=== PATIENT | female | born 1995 | race Caucasian/White ===

== ENCOUNTER 2016-08-11 19:48 | Emergency (ER) | payer OTHER ==
[~2016-08-11] VITALS: Ht 157.5 cm; Wt 74.8 kg
[2016-08-11 19:54] VITALS: TEMP 36.8; Ht 157.5 cm; Wt 74.8 kg
[2016-08-11] MEDS ORDERED: IBUPROFEN 600 MG TAB PO STA (20:03)
[2016-08-11] MEDS ORDERED: MONT1TAB3 PO (20:20)
[2016-08-11] MEDS ORDERED: PRVHFAIN INH (20:20)
[2016-08-11] MEDS ORDERED: CETI10TA84 PO (20:20)
[2016-08-11] MEDS ORDERED: BCPILLS PO (20:20)
--- NOTE | 2016-08-11 20:33 | DIAGNOSTIC IMAGING REPORT ---
LEFT WRIST 5 VIEWS HISTORY: Left wrist pain. COMPARISON: None. FINDINGS: Cortical buckling along the radial side of the distal radius near the base of the radial styloid. This likely represents a nondisplaced fracture. The scaphoid appears intact. Mild soft tissue swelling. No dislocation. No radiopaque foreign bodies. IMPRESSION: Nondisplaced fracture at the base of the radial styloid. Electronically signed by: Dain Barry M.D. 08/11/2016 8:31 PM Dictated Date/Time: 08/11/2016 8:29 PM
[2016-08-11] MEDS ORDERED: OXYC-57 PO (20:45)
[2016-08-11] MEDS ORDERED: PERCOCET HOME PACK PO ONE (20:45)
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
[2016-08-11 21:13] VITALS: BP 130/78; PULSE 86; O2SAT 98
== END 2016-08-11 21:14 | disposition home or self-care (01) ==
LOC: C.EDB 19:50 → C.EDD 21:14
DX: S52.515A Nondisplaced fracture of left radial styloid process, initial encounter for closed fracture (principal); V28.0XXA Motorcycle driver injured in noncollision transport accident in nontraffic accident, initial encounter; Y92.488 Other paved roadways as the place of occurrence of the external cause; F17.210 Nicotine dependence, cigarettes, uncomplicated; Z79.3 Long term (current) use of hormonal contraceptives

== ENCOUNTER 2021-07-28 14:23 | Observation (INO) ==
[2021-07-28] MEDS ORDERED: SODIUM CHLORIDE 0.9% 1000ML 1,000 ML IV ONE (14:56)
--- NOTE | 2021-07-28 15:05 | Emergency Department Note ---
History of Present Illness General Chief complaint: Urinary Symptoms Stated complaint: BLOOD IN URINE Time Seen by Provider: 07/28/21 14:41 Source: patient and family ( who is at the bedside) Mode of arrival: ambulatory Limitations: no limitations History of Present Illness Maximum Pain Intensity: 7 This patient is a 25-year-old female who comes in with aminal pain and hematuria. She is status post laparoscopic ovarian cyst removal on 07/[address] Severino here. She was having right-sided abdominal pain prior and since then she says the pain has not gotten any better in fact is slightly worse she said it feels like there is pressure in her bladder however she feels like she has been emptying her bladder today she did urinate some blood. She did talk to her doctors this week if she is running fevers up to 101.1 last couple days and they have a urine culture pending but she is not on any antibiotic she has had a mild cough which is mostly chronic she states she developed a stitch in her right anterior chest last night. She has mild bilateral back pain she has some nausea but no emesis. She had a recent negative COVID test and has had no known COVID exposures. The surgery wounds have been healing well Home Medications Medication Instructions Recorded Confirmed Type albuterol sulfate 90 mcg/actuation 1 inh INHALATION QID PRN 07/18/21 07/28/21 History aerosol inhaler (Ventolin HFA) ibuprofen 200 mg capsule 600 mg PO Q6H PRN 07/18/21 07/28/21 History tramadol 50 mg tablet 50 mg PO Q6H PRN #12 tab 07/20/21 07/28/21 Rx cephalexin 500 mg tablet 500 mg PO BID 10 Days #20 tab 07/28/21 Rx Allergies Allergy/AdvReac Type Severity Reaction Status Date / Time doxycycline Allergy Intermediate hives Verified 07/28/21 15:21 nickel Allergy Intermediate ITCHY HIVES Verified 07/28/21 15:21 Past Med/Surg History Medical History Anxiety Asthma LAST INHALER USE 2-3 WEEKS AGO GERD (gastroesophageal reflux disease) Migraine HX Surgical History History of laparotomy FOR OVARIAN CYSTS History of tooth extraction WISDOM TEETH Nausea and vomiting after administration of anesthetic agent Family History Grandmother (Maternal) No problems noted. 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 Feels Safe at Home: Yes Childhood Exposure to Second-Hand Smoke: Yes caffeine: No Dental Care, Regularly: No Physical Activity Frequency: Does not Exercise Seatbelt Use: always Sunscreen Use: No Do you think of yourself as: straight/heterosexual Sexual Activity: has never been active Gender Identity: Female Assistive Devices: Contacts and Glasses Review of Systems A total of 10 systems reviewed and were otherwise negative Physical Exam Vital Signs Vital Signs - 24 hr 07/28/21 14:31 07/28/21 15:14 07/28/21 16:40 Temperature 36.3 C L Temperature Source Skin Pulse Rate 110 H Pulse Rate [Finger] 89 Pulse Rhythm Regular Pulse Strength Normal Respiratory Rate 20 20 Respiratory Effort / Characteristics Non-Labored Spontaneous Respiratory Depth Normal Respiratory Pattern Regular Blood Pressure 123/80 Blood Pressure [Left Arm] 106/61 Blood Pressure Mean 94 Blood Pressure Mean [Left Arm] 76 Pulse Oximetry 98 97 99 Oxygen Delivery Method Room Air Room Air Room Air Sepsis Recent Fever Within 48 Hours No Sepsis New/Unexplained Change in Mental Status N/A Sepsis Action Taken by Nursing No Action Required 07/28/21 17:29 07/28/21 19:03 Temperature Temperature Source Pulse Rate Pulse Rate [Finger] 91 H 85 Pulse Rhythm Pulse Strength Respiratory Rate 24 18 Respiratory Effort / Characteristics Respiratory Depth Respiratory Pattern Blood Pressure Blood Pressure [Left Arm] 106/61 107/68 Blood Pressure Mean Blood Pressure Mean [Left Arm] 76 81 Pulse Oximetry 100 99 Oxygen Delivery Method Room Air Room Air Sepsis Recent Fever Within 48 Hours Sepsis New/Unexplained Change in Mental Status Sepsis Action Taken by Nursing General: Well developed well nourished not ill-appearing young female who in no acute distress, breathing comfortably on room air. Normal speech HEENT: Normal cephalic atraumatic. Pupils are equal round and reactive to light. Extraocular movements are intact. Oropharynx is pink with moist mucous membranes. No swelling of the mouth lips or tongue. Neck: Supple with a midline trachea. No meningeal signs or stiffness, no JVD or bruits. No Stridor. Chest: Clear to auscultation bilaterally. No wheezes or rhonchi. No increased work of breathing. No tenderness of the ribs. No crepitus or subcutaneous air Heart: Regular rate and rhythm without murmurs or gallops. Abdomen: Soft to moderately diffusely tender. She has 4 incisions from her laparoscopic surgery which are healing well without any redness pus or drainage. There is a small hematoma/bruise below the umbilical incision. Nondistended without rebound guarding or rigidity. Extremities: No cyanosis clubbing or edema. No calf tenderness or assymetry Spine/Back. Non tender to palpation. No CVA tenderness Skin: Good turgor without rashes. Neurologic exam: Cranial nerves two through 12 are intact. Motor and sensation are intact and symmetrical throughout. Course Administered Medications Discontinued Medications Cephalexin HCl (Cephalexin 500mg Home Pack) 1 homepack PO NOW ONE Stop: 07/28/21 18:36 Last Admin: 07/28/21 21:05 Dose: Not Given Documented by: [id number] Sodium Chloride (Nss 1000ml) 1,000 mls @ 999 mls/hr IV .Q1H1M ONE Stop: 07/28/21 15:56 Last Infusion: 07/28/21 16:15 Dose: 0 mls/hr Documented by: [id number] Admin: 07/28/21 15:18 Dose: 999 mls/hr Documented by: [id number] Ioversol (Optiray 320 125ml) 119 ml IV ONCE ONE Stop: 07/28/21 17:19 Last Admin: 07/28/21 17:18 Dose: 119 ml Documented by: [id number] Medical Decision Making Differential Diagnosis UTI, postop complication, postop bleeding, PE, , ovarian cysts, endometriosis, electrolyte or metabolic Medical Records Attestation: I reviewed the patient's medical records. Home Medications Current Medication List: was personally reviewed by me Laboratory Data Attestation: I reviewed the patient's lab results. Result diagrams: 07/28/21 15:05 07/28/21 15:05 Lab Results 07/28/21 07/28/21 07/28/21 Range/Units 15:05 15:05 15:05 WBC 8.38 (4.8-10.8) K/uL RBC 3.51 L (4.2-5.4) M/uL Hgb 10.4 L (12.0-16.0) g/dL Hct 30.9 L (37-47) % MCV 88.0 (80-100) fL MCH 29.6 (25-34) pg MCHC 33.7 (32-36) g/dL RDW Std Deviation 40.6 (36.4-46.3) fL RDW Coeff of Santino 12.9 (11.5-14.5) % Plt Count 493 H (130-400) K/uL MPV 8.2 (7.4-10.4) fL Immature Gran % (Auto) 0.2 % Neut % (Auto) 66.9 % Lymph % (Auto) 19.5 % Eagle % (Auto) 7.3 % Eos % (Auto) 5.7 % Baso % (Auto) 0.4 % Neut # (Auto) 5.61 (1.4-6.5) K/uL Lymph # (Auto) 1.63 (1.2-3.4) K/uL Eagle # (Auto) 0.61 H (0.11-0.59) K/uL Eos # (Auto) 0.48 (0-0.5) K/uL Baso # (Auto) 0.03 (0-0.2) K/uL Immature Gran # (Auto) 0.02 (0.00-0.02) K/uL PT (9.0-12.0) Seconds INR (0.9-1.1) APTT (21.0-31.0) Seconds PTT Ratio D-Dimer 2810 H* (0-500) ug/L FEU Sodium 136 (136-145) mmol/L Potassium 4.0 (3.5-5.1) mmol/L Chloride 101 (98-107) mmol/L Carbon Dioxide 27 (21-32) mmol/L Anion Gap 8 (3-11) BUN 8 (6-23) mg/dl Creatinine 0.54 L (0.6-1.2) mg/dl Est Cr Clr Drug Dosing 149.2 ml/min Est GFR ( Amer) > 150.0 ml/min Est GFR (Non-Af Amer) 131.2 ml/min BUN/Creatinine Ratio 14.8 (10-20) Glucose 86 (70-99(Fasting)) mg/dl Lactate (0.4-2.0) mmol/L Calcium 9.8 (8.5-10.1) mg/dl Magnesium 2.1 (1.7-2.4) mg/dl Total Bilirubin 1.1 H (0.2-1.0) mg/dl AST 23 (13-39) U/L ALT 14 (7-52) U/L Alkaline Phosphatase 71 (34-104) U/L Total Protein 7.8 (6.0-8.3) gm/dl Albumin 4.2 (3.4-5.0) gm/dl Globulin 3.6 (2.5-4.0) gm/dl Albumin/Globulin Ratio 1.2 (0.9-2) Procalcitonin (0-0.5) ng/ml HCG, Qual (Negative) Urine Color Urine Appearance (Clear) Urine pH (4.5-7.5) Ur Specific [place] (1.000-1.030) Urine Protein (Negative) Urine Glucose (UA) (Negative) Urine Ketones (Negative) Urine Blood (Negative) Urine Nitrite (Negative) Urine Bilirubin (Negative) Urine Urobilinogen (Negative) Ur Leukocyte Esterase (Negative) Urine WBC (Auto) (0-5) /hpf Urine RBC (Auto) (0-4) /hpf U Hyaline Cast (Auto) (0-5) /lpf U Epithel Cells (Auto) (0-5) /lpf Urine Bacteria (Auto) (Negative) Urine Mucus (None Prsent) SARS-CoV-2, RNA, NAAT (NEGATIVE) 07/28/21 07/28/21 07/28/21 Range/Units 15:05 15:05 15:05 WBC (4.8-10.8) K/uL RBC (4.2-5.4) M/uL Hgb (12.0-16.0) g/dL Hct (37-47) % MCV (80-100) fL MCH (25-34) pg MCHC (32-36) g/dL RDW Std Deviation (36.4-46.3) fL RDW Coeff of Santino (11.5-14.5) % Plt Count (130-400) K/uL MPV (7.4-10.4) fL Immature Gran % (Auto) % Neut % (Auto) % Lymph % (Auto) % Eagle % (Auto) % Eos % (Auto) % Baso % (Auto) % Neut # (Auto) (1.4-6.5) K/uL Lymph # (Auto) (1.2-3.4) K/uL Eagle # (Auto) (0.11-0.59) K/uL Eos # (Auto) (0-0.5) K/uL Baso # (Auto) (0-0.2) K/uL Immature Gran # (Auto) (0.00-0.02) K/uL PT (9.0-12.0) Seconds INR (0.9-1.1) APTT (21.0-31.0) Seconds PTT Ratio D-Dimer (0-500) ug/L FEU Sodium (136-145) mmol/L Potassium (3.5-5.1) mmol/L Chloride (98-107) mmol/L Carbon Dioxide (21-32) mmol/L Anion Gap (3-11) BUN (6-23) mg/dl Creatinine (0.6-1.2) mg/dl Est Cr Clr Drug Dosing ml/min Est GFR ( Amer) ml/min Est GFR (Non-Af Amer) ml/min BUN/Creatinine Ratio (10-20) Glucose (70-99(Fasting)) mg/dl Lactate 0.8 (0.4-2.0) mmol/L Calcium (8.5-10.1) mg/dl Magnesium (1.7-2.4) mg/dl Total Bilirubin (0.2-1.0) mg/dl AST (13-39) U/L ALT (7-52) U/L Alkaline Phosphatase (34-104) U/L Total Protein (6.0-8.3) gm/dl Albumin (3.4-5.0) gm/dl Globulin (2.5-4.0) gm/dl Albumin/Globulin Ratio (0.9-2) Procalcitonin < 0.05 (0-0.5) ng/ml HCG, Qual Negative (Negative) Urine Color Urine Appearance (Clear) Urine pH (4.5-7.5) Ur Specific [place] (1.000-1.030) Urine Protein (Negative) Urine Glucose (UA) (Negative) Urine Ketones (Negative) Urine Blood (Negative) Urine Nitrite (Negative) Urine Bilirubin (Negative) Urine Urobilinogen (Negative) Ur Leukocyte Esterase (Negative) Urine WBC (Auto) (0-5) /hpf Urine RBC (Auto) (0-4) /hpf U Hyaline Cast (Auto) (0-5) /lpf U Epithel Cells (Auto) (0-5) /lpf Urine Bacteria (Auto) (Negative) Urine Mucus (None Prsent) SARS-CoV-2, RNA, NAAT (NEGATIVE) 07/28/21 07/28/21 07/28/21 Range/Units 15:05 15:05 15:10 WBC (4.8-10.8) K/uL RBC (4.2-5.4) M/uL Hgb (12.0-16.0) g/dL Hct (37-47) % MCV (80-100) fL MCH (25-34) pg MCHC (32-36) g/dL RDW Std Deviation (36.4-46.3) fL RDW Coeff of Santino (11.5-14.5) % Plt Count (130-400) K/uL MPV (7.4-10.4) fL Immature Gran % (Auto) % Neut % (Auto) % Lymph % (Auto) % Eagle % (Auto) % Eos % (Auto) % Baso % (Auto) % Neut # (Auto) (1.4-6.5) K/uL Lymph # (Auto) (1.2-3.4) K/uL Eagle # (Auto) (0.11-0.59) K/uL Eos # (Auto) (0-0.5) K/uL Baso # (Auto) (0-0.2) K/uL Immature Gran # (Auto) (0.00-0.02) K/uL PT 10.5 (9.0-12.0) Seconds INR 1.0 (0.9-1.1) APTT 29.2 (21.0-31.0) Seconds PTT Ratio 1.1 D-Dimer (0-500) ug/L FEU Sodium (136-145) mmol/L Potassium (3.5-5.1) mmol/L Chloride (98-107) mmol/L Carbon Dioxide (21-32) mmol/L Anion Gap (3-11) BUN (6-23) mg/dl Creatinine (0.6-1.2) mg/dl Est Cr Clr Drug Dosing ml/min Est GFR ( Amer) ml/min Est GFR (Non-Af Amer) ml/min BUN/Creatinine Ratio (10-20) Glucose (70-99(Fasting)) mg/dl Lactate (0.4-2.0) mmol/L Calcium (8.5-10.1) mg/dl Magnesium (1.7-2.4) mg/dl Total Bilirubin (0.2-1.0) mg/dl AST (13-39) U/L ALT (7-52) U/L Alkaline Phosphatase (34-104) U/L Total Protein (6.0-8.3) gm/dl Albumin (3.4-5.0) gm/dl Globulin (2.5-4.0) gm/dl Albumin/Globulin Ratio (0.9-2) Procalcitonin (0-0.5) ng/ml HCG, Qual (Negative) Urine Color Dark Yellow Urine Appearance Clear (Clear) Urine pH 6.5 (4.5-7.5) Ur Specific [place] 1.021 (1.000-1.030) Urine Protein Negative (Negative) Urine Glucose (UA) Negative (Negative) Urine Ketones Negative (Negative) Urine Blood Negative (Negative) Urine Nitrite Negative (Negative) Urine Bilirubin Negative (Negative) Urine Urobilinogen Negative (Negative) Ur Leukocyte Esterase 1+ H (Negative) Urine WBC (Auto) 1-5 (0-5) /hpf Urine RBC (Auto) 0-4 (0-4) /hpf U Hyaline Cast (Auto) 1-5 (0-5) /lpf U Epithel Cells (Auto) >30 H (0-5) /lpf Urine Bacteria (Auto) Negative (Negative) Urine Mucus Present A (None Prsent) SARS-CoV-2, RNA, NAAT NEGATIVE (NEGATIVE) Imaging Data Attestation: I personally reviewed and interpreted this imaging study as follows: My Impression: Chest x-rayno acute infiltrate, failure, pneumothorax seen. No free air Radiologist's Impression: Pelvis Ultrasound 07/28/21 00:00 US pelvic complete HISTORY: 25 years-old Female pain acute pelvic pain with hemoperitoneum and recent laparoscopic cyst removal COMPARISON: CT pelvis of same day TECHNIQUE: Multiple real-time sonographic images of the deep pelvic structures were obtained transabdominally and transvaginally assessing grayscale appearance, color and spectral flow FINDINGS: TRANSABDOMINAL: Anteflexed uterus measures 6.9 x 2.7 x 4.6 cm. Endometrium measures 7 mm. No myometrial mass lesion identified. Moderate amount of complex free pelvic fluid redemonstrated measuring up to 8.4 x 4.3 x 7.3 cm superior to the uterus. Ovaries are not well visualized. TRANSVAGINAL: Unremarkable sonographic appearance of the uterus and endometrium. Pneumoperitoneum redemonstrated. The right ovary measures 3.9 x 3.1 x 3.9 cm and demonstrates arterial inflow with venous outflow. Hemorrhagic right ovarian cyst, 2.7 x 3.1 x 1.9 cm. The left ovary is obscured by the pelvic blood products. IMPRESSION: 1. Moderate amount of hemoperitoneum within the pelvis redemonstrated obscuring the left ovary. 2. Unremarkable sonographic appearance of the uterus and endometrium. 3. 3.1 cm hemorrhagic right ovarian cyst. 4. No evidence of right ovarian torsion. ACT 112: Negative or not required by law. The above report was generated using voice recognition software. It may contain grammatical, syntax or spelling errors. Electronically signed by: Tristian De La Torre M.D. 07/28/2021 8:34 PM Chest X-Ray 07/28/21 14:56 XR chest 1V portable HISTORY: 25 years-old Female SEPSIS acute sepsis COMPARISON: 07/28/2017 TECHNIQUE: AP view of the chest FINDINGS: The cardiomediastinal and hilar silhouettes are within normal limits. No pneumothorax, pleural effusion, airspace consolidation or overt pulmonary edema. The bones of the chest appear grossly intact. IMPRESSION: No acute process. ACT 112: Negative or not required by law. The above report was generated using voice recognition software. It may contain grammatical, syntax or spelling errors. Electronically signed by: Tristian De La Torre M.D. 07/28/2021 3:47 PM Abdomen/Pelvis CT 07/28/21 16:29 CT angio chest PE protocol, CT abd pelvis IV con only CT DOSE: 750.96 mGy.cm HISTORY: 25 years-old Female with PE. Acute cough with shortness of breath and abdominal pain. Recent laparoscopic ovarian cyst removal. Acute hematuria. TECHNIQUE: Multiple CTA images of the chest were obtained after the intravenous administration of 119 ml Optiray. Coronal and sagittal MIPS were obtained from the axial data set and were submitted for review. All measurements were obtained according to NASCET criteria. A dose lowering technique was utilized adhering to the principles of ALARA. COMPARISON: Chest radiograph of same day FINDINGS: CTA: There is adequate opacification of the pulmonary arteries to the level of the subsegmental branches without convincing evidence of acute pulmonary embolism. Normal thoracic aorta.Heart size is normal. CT CHEST: No thyroid nodule. Residual thymic tissue anterior mediastinum. No lymphadenopathy. Appearance of the breast tissue. Trace pleural effusions. No pneumothorax or overt pulmonary edema. Subsegmental left greater than right bibasilar atelectasis. The central airways are patent. No acute fracture. CT ABDOMEN/PELVIS: Small volume of pneumoperitoneum, predominately within the upper abdomen. The spleen measures within the upper limits of normal in size. Unremarkable pancreas, gallbladder and adrenal glands. Hepatic steatosis with mild hepatomegaly. There is patency of the hepatic and portal veins. Unremarkable kidneys. No hydronephrosis. Mild urinary bladder wall thickening. Focus of air is noted within the urinary bladder lumen. Air is also noted within the vaginal introitus. 2.4 cm cystic structure of the right ovary. Moderate pelvic hemoperitoneum with hemorrhagic material measuring up to 7 mm superior to the urinary bladder and anterior to the uterus. Hemorrhage tracks into the bilateral adnexal distributions and inferior pericolic gutters. The appendix is fluid-filled however appears noninflamed. Scattered colonic air- fluid levels. No bowel obstruction. Subcutaneous emphysema with trace fluid noted within the periumbilical tissues, likely postoperative. No acute fracture. IMPRESSION: 1. No pulmonary embolus. 2. Small amount of pneumoperitoneum is likely an expected postoperative finding. Additionally, there is a moderate amount of pelvic hemoperitoneum. 3. 2.4 cm right ovarian cyst. 4. Mild urinary bladder wall thickening. Air within the bladder lumen may be secondary to recent instrumentation versus infection. 5. The appendix is fluid-filled however appears noninflamed. 6. Hepatomegaly with hepatic steatosis. ACT 112: Negative or not required by law. The above report was generated using voice recognition software. It may contain grammatical, syntax or spelling errors. Electronically signed by: Tristian De La Torre M.D. 07/28/2021 5:46 PM Chest CTA 07/28/21 16:29 CT angio chest PE protocol, CT abd pelvis IV con only CT DOSE: 750.96 mGy.cm HISTORY: 25 years-old Female with PE. Acute cough with shortness of breath and abdominal pain. Recent laparoscopic ovarian cyst removal. Acute hematuria. TECHNIQUE: Multiple CTA images of the chest were obtained after the intravenous administration of 119 ml Optiray. Coronal and sagittal MIPS were obtained from the axial data set and were submitted for review. All measurements were obtained according to NASCET criteria. A dose lowering technique was utilized adhering to the principles of ALARA. COMPARISON: Chest radiograph of same day FINDINGS: CTA: There is adequate opacification of the pulmonary arteries to the level of the subsegmental branches without convincing evidence of acute pulmonary embolism. N ormal thoracic aorta.Heart size is normal. CT CHEST: No thyroid nodule. Residual thymic tissue anterior mediastinum. No lymphadenopathy. Appearance of the breast tissue. Trace pleural effusions. No pneumothorax or overt pulmonary edema. Subsegmental left greater than right bibasilar atelectasis. The central airways are patent. No acute fracture. CT ABDOMEN/PELVIS: Small volume of pneumoperitoneum, predominately within the upper abdomen. The spleen measures within the upper limits of normal in size. Unremarkable panc reas, gallbladder and adrenal glands. Hepatic steatosis with mild hepatomegaly. There is patency of the hepatic and portal veins. Unremarkable kidneys. No hydronephrosis. Mild urinary bladder wall thickening. Focus of air is noted within the urinary bladder lumen. Air is also noted within the vaginal introitus. 2.4 cm cystic structure of the right ovary. Moderate pelvic hemoperitoneum with hemorrhagic material measuring up to 7 mm superior to the urinary bladder and anterior to the uterus. Hemorrhage tracks into the bilateral adnexal distributions and inferior pericolic gutters. The appendix is fluid-filled however appears noninflamed. Scattered colonic air- fluid levels. No bowel obstruction. Subcutaneous emphysema with trace fluid noted within the periumbilical tissues, likely postoperative. No acute fracture. IMPRESSION: 1. No pulmonary embolus. 2. Small amount of pneumoperitoneum is likely an expected postoperative finding. Additionally, there is a moderate amount of pelvic hemoperitoneum. 3. 2.4 cm right ovarian cyst. 4. Mild urinary bladder wall thickening. Air within the bladder lumen may be secondary to recent instrumentation versus infection. 5. The appendix is fluid-filled however appears noninflamed. 6. Hepatomegaly with hepatic steatosis. ACT 112: Negative or not required by law. The above report was generated using voice recognition software. It may contain grammatical, syntax or spelling errors. Electronically signed by: Tristian De La Torre M.D. 07/28/2021 5:46 PM [facility] Narrative This patient comes in as described above she has been having fevers and abdominal pain and urinary symptoms after having recent abdominal surgery. She did have a Aquino catheter during the procedure and is certainly at risk for having an infection. She also had some pain in her right anterior chest which she says feels like a stitch. In light of this I did order a D-dimer and EKG as well. She is a full sepsis type work-up obtained she was hydrated 1 L normal saline bolus urinalysis and culture was obtained I did a bladder scan as well. She was reassessed frequently. Her D-dimer was elevated and in light of this I did a CTA of her chest and there is no evidence of PE. The CAT scan of her abdomen shows a moderate amount of postop blood and some inflammation of the bladder most likely is all just postop changes. Hemoglobin is 10.3 which is down from 13 preop. test is negative. COVID testing was negative. Urinalysis does not suggest a UTI however bladder does look inflamed on the ultrasound. I did talk to Dr. Harvey and she requested that we do an ultrasound which was obtained. There is a moderate mount of hemoperitoneum and Dr. Holguin is going to admit the patient for observation. Continuous cardiac monitoring: Orders placed in the EMR for continuous cardiac monitoring. Upon my interpretation she was noted to be in normal sinus rhythm rate of 85 Impression & Plan Abdominal pain, S/P removal of ovarian cyst, Hemoperitoneum, Lab test negative for COVID-19 virus Discharge Plan Visit Data Chief Complaint: Urinary Symptoms Stated Complaint: BLOOD IN URINE ED Provider: Kael Arce Discharge Problem: Abdominal pain, S/P removal of ovarian cyst, Hemoperitoneum, Lab test negative for COVID-19 virus Patient Disposition: Admitted As Inpatient Discharge Instructions Interventions: ED Discharge Assessment Last Done: 07/28/21 21:15
[2021-07-28 15:47] LABS: Basophils # (auto) 0.03 K/uL (0-0.2); Basophils % (auto) 0.4 %; Eosinophils # (auto) 0.48 K/uL (0-0.5); Eosinophils % (auto) 5.7 %; Hematocrit (blood only) 30.9 % (37-47); Hemoglobin 10.4 g/dL (12.0-16.0); Immature Granulocytes # (auto) 0.02 K/uL (0.00-0.02); Immature Granulocytes % (auto) 0.2 %; Lymphocytes # (auto) 1.63 K/uL (1.2-3.4); Lymphocytes % (auto) 19.5 %; Mean Corpuscular Hemoglobin 29.6 pg (25-34); Mean Corpuscular Hgb Conc 33.7 g/dL (32-36); Mean Platelet Volume 8.2 fL (7.4-10.4); Monocytes # (auto) 0.61 K/uL (0.11-0.59); Monocytes % (auto) 7.3 %; Neutrophils # (auto) 5.61 K/uL (1.4-6.5); Neutrophils % (auto) 66.9 %; Platelet Count 493 K/uL (130-400); RDW Coefficient of Variation 12.9 % (11.5-14.5); RDW Standard Deviation 40.6 fL (36.4-46.3); Red Blood Count 3.51 M/uL (4.2-5.4); White Blood Count 8.38 K/uL (4.8-10.8)
--- NOTE | 2021-07-28 15:49 | XRay Report ---
XR chest 1V portable HISTORY: 25 years-old Female SEPSIS acute sepsis COMPARISON: 07/28/2017 TECHNIQUE: AP view of the chest FINDINGS: The cardiomediastinal and hilar silhouettes are within normal limits. No pneumothorax, pleural effusi on, airspace consolidation or overt pulmonary edema. The bones of the chest appear grossly intact. IMPRESSION: No acute process. ACT 112: Negative or not required by law. The above report was generated using voice recognition software. It may contain grammatical, syntax o r spelling errors. Electronically signed by: Tristian De La Torre M.D. 07/28/2021 3:47 PM
[2021-07-28 15:50] LABS: Appearance Urine Clear (Clear); Bacteria Urine Automated Negative (Negative); Bilirubin Urine Negative (Negative); Blood Urine Negative (Negative); Color Urine Dark Yellow; Epithelial Cell Urine Auto >30 /lpf (0-5); Glucose Urine UA Negative (Negative); Ketones Urine Negative (Negative); Leukocyte Esterase Urine 1+ (Negative); Nitrite Urine Negative (Negative); Protein Urine Negative (Negative); Specific Gravity Urine 1.021 (1.000-1.030); Urobilinogen Urine Negative (Negative); pH Urine 6.5 (4.5-7.5)
[2021-07-28 16:07] LABS: Partial Thromboplastin Ratio 1.1; Partial Thromboplastin Time 29.2 Seconds (21.0-31.0); Prothrombin Time 10.5 Seconds (9.0-12.0)
[2021-07-28 16:08] LABS: Mucus Urine Present (None Prsent); RBC Urine Automated 0-4 /hpf (0-4)
[2021-07-28 16:09] LABS: Pregnancy Test, Serum Negative (Negative)
[2021-07-28 16:19] LABS: Alanine Aminotransferase 14 U/L (7-52); Albumin Globulin Ratio 1.2 (0.9-2); Albumin Level 4.2 gm/dl (3.4-5.0); Alkaline Phosphatase 71 U/L (34-104); Anion Gap 8 (3-11); Aspartate Aminotransferase 23 U/L (13-39); BUN Creatinine Ratio 14.8 (10-20); Bilirubin,Total 1.1 mg/dl (0.2-1.0); Blood Urea Nitrogen 8 mg/dl (6-23); Calcium 9.8 mg/dl (8.5-10.1); Carbon Dioxide 27 mmol/L (21-32); Chloride 101 mmol/L (98-107); Creatinine Clr Calc Pharmacy 149.2 ml/min; D Dimer 2810 ug/L FEU (0-500); Est GFR (African American) > 150.0 ml/min; Est GFR (Non-African American) 131.2 ml/min; Globulin 3.6 gm/dl (2.5-4.0); Glucose 86 mg/dl (70-99(Fasting)); Magnesium 2.1 mg/dl (1.7-2.4); Sodium 136 mmol/L (136-145); Total Protein 7.8 gm/dl (6.0-8.3)
[2021-07-28] MEDS ORDERED: OPTIRAY 320 125ml IV ONE (17:18)
--- NOTE | 2021-07-28 17:48 | CT Scan Report ---
CT angio chest PE protocol, CT abd pelvis IV con only CT DOSE: 750.96 mGy.cm HISTORY: 25 years-old Female with PE. Acute cough with shortness of breath and abdominal pain. Rece nt laparoscopic ovarian cyst removal. Acute hematuria. TECHNIQUE: Multiple CTA images of the chest were obtained after the intravenous administration of 119 ml Optiray. Coronal and sagittal MIPS were obtained from the axial data set and were submitted for review. All measurements were obtained according to NASCET criteria. A dose lowering technique was u tilized adhering to the principles of ALARA. COMPARISON: Chest radiograph of same day FINDINGS: CTA: There is adequate opacification of the pulmonary arteries to the level of the subsegmental branches w ithout convincing evidence of acute pulmonary embolism. Normal thoracic aorta.Heart size is normal. CT CHEST: No thyroid nodule. Residual thymic tissue anterior mediastinum. No lymphadenopathy. Appearance of the breast tissue. Trace pleural effusions. No pneumothorax or overt pulmonary edema. Subsegmental left greater than right bibasilar atelectasis. The central airways are patent. No acute fracture. CT ABDOMEN/PELVIS: Small volume of pneumoperitoneum, predominately within the upper abdomen. The spleen measures within the upper limits of normal in size. Unremarkable pancreas, gallbladder and adrenal glands. Hepatic st eatosis with mild hepatomegaly. There is patency of the hepatic and portal veins. Unremarkable kidneys. No hydronephrosis. Mild urinary bladder wall thickening. Focus of air is noted within the urinary bladder lumen. Air is also noted within the vaginal introitus. 2.4 cm cystic struc ture of the right ovary. Moderate pelvic hemoperitoneum with hemorrhagic material measuring up to 7 m m superior to the urinary bladder and anterior to the uterus. Hemorrhage tracks into the bilateral ad nexal distributions and inferior pericolic gutters. The appendix is fluid-filled however appears noninflamed. Scattered colonic air-fluid levels. No bob l obstruction. Subcutaneous emphysema with trace fluid noted within the periumbilical tissues, likely postoperative. No acute fracture. IMPRESSION: 1. No pulmonary embolus. 2. Small amount of pneumoperitoneum is likely an expected postoperative finding. Additionally, there is a moderate amount of pelvic hemoperitoneum. 3. 2.4 cm right ovarian cyst. 4. Mild urinary bladder wall thickening. Air within the bladder lumen may be secondary to recent inst rumentation versus infection. 5. The appendix is fluid-filled however appears noninflamed. 6. Hepatomegaly with hepatic steatosis. ACT 112: Negative or not required by law. The above report was generated using voice recognition software. It may contain grammatical, syntax o r spelling errors. Electronically signed by: Tristian De La Torre M.D. 07/28/2021 5:46 PM
[2021-07-28] MEDS ORDERED: cephALEXin 500MG HOME PACK PO ONE (18:35)
[2021-07-28] MEDS ORDERED: IBUPROFEN 600 MG TAB PO PRN (19:59)
[2021-07-28] MEDS ORDERED: traMADol HCL 50 MG TABLET PO PRN (19:59)
[2021-07-28] MEDS ORDERED: ALBUTEROL HFA 8 GM INHALER INH PRN (19:59)
[2021-07-28] MEDS ORDERED: LACTATED RINGER'S 1,000 ML IV SCH (20:00)
[2021-07-28] MEDS ORDERED: ACETAMINOPHEN 325 MG TAB PO PRN (20:00)
--- NOTE | 2021-07-28 20:24 | History & Physical Report ---
Date of Service July 28, 2021 Assessment & Plan (1) Post-operative pain: Plan: Discussed with patient and her significant other that I think the most likely cause of her pain is that she had a small amount of bleeding after surgery, which we have visualized on CT and transabdominal ultrasound. However I believe this to be old blood, no indication that is abscess. This may take some time for it to resolve, but I do not believe there is any active bleeding in her a bdomen/pelvis at this time. However her hemoglobin preoperatively has dropped and I want to make sure that it stable with repeat labs in the morning. If there is a concern for ongoing bleeding will make n.p.o. and plan for diagnostic laparoscopy. If there is additional findings are concerned about a postop abscess, will consider IR drainage. Patient is agreeable with the plan of care at this time Admit for observation P.o. Tylenol, ibuprofen and tramadol as needed Consider IV medication if indicated Lactated Ringer's at 75 mils an hour, regular diet Ambulate as tolerated COVID test pending Repeat CBC and BMP in the morning (2) Postoperative fever: Plan: Wiill start cephalexin 500 mg 4 times daily for possible UTI, due to increased risk due to Aquino placement at the time of surgery (3) Elevated d-dimer: Plan: Most likely elevated due to postoperative state, and clot formation from surgery. Was negative for PE on CTA earlier today. 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 Patient underwent surgery last Friday in which a large left ovarian cyst was removed from her left ovary, noted small amount of bleeding from her left ovary at time of surgery and Tisseel was applied. Hemostasis was then noted. Both sites of peritoneal lesions that were removed, were both noted to be hemostatic at the time of surgery. Preop hemoglobin/hematocrit 07/04/2021 09:37 HGB: 13.9 HCT: 40.3 Patient had noticed approximately on Friday and her pain to become more increasing, and she needed to take her tramadol, as well as she noted around midnight to have spiking fevers, with the highest temp of 101.5. She did have a fever of 100 yesterday evening, has come down since. When she got to the ER she did not have a fever. She has been ambulating well, denies any bowel changes. Notes possible urinary symptoms and thinks she had blood come from her urine or her vagina earlier this morning. She also noticed tenderness over her right incision site, more painful than her other incision sites. Noticed bruising at her umbilicus. She denies shortness of breath, chest pain or dizziness. Otherwise doing well. Pain is currently 7 out of 10, but has been well controlled with p.o. medication at this time. Allergies Allergy/AdvReac Type Severity Reaction Status Date / Time doxycycline Allergy Intermediate hives Verified 07/28/21 15:21 nickel Allergy Intermediate ITCHY HIVES Verified 07/28/21 15:21 Home Medications Medication Instructions Recorded Confirmed Type albuterol sulfate 90 mcg/actuation 1 inh INHALATION QID PRN 07/18/21 07/28/21 History aerosol inhaler (Ventolin HFA) ibuprofen 200 mg capsule 600 mg PO Q6H PRN 07/18/21 07/28/21 History tramadol 50 mg tablet 50 mg PO Q6H PRN #12 tab 07/20/21 07/28/21 Rx cephalexin 500 mg tablet 500 mg PO BID 10 Days #20 tab 07/28/21 Rx Patient History Medical History Anxiety Asthma LAST INHALER USE 2-3 WEEKS AGO GERD (gastroesophageal reflux disease) Migraine HX Surgical History History of laparotomy FOR OVARIAN CYSTS History of tooth extraction WISDOM TEETH Nausea and vomiting after administration of anesthetic agent Family History Grandmother (Maternal) No problems noted. Grandmother (Paternal) Family hx of colon cancer Social History Smoking Status: Former smoker Tobacco Type: Cigarettes Second Hand Exposure: No; Hx Alcohol Use: No Hx Substance Use: No Preferred Language: Swiss Communication Ability: Effective Relief Worker Required: No Beliefs That Will Affect Care: None Current Living Situation: Spouse and Other current occupational status: employed current occupation: [employer] Feels Safe at Home: Yes Assistive Devices: Contacts and Glasses OB History G0, P0 Review of Systems All systems reviewed & are unremarkable except as noted in HPI & below Physical Exam Constitutional: WD/WN, vitals as above Respiratory: normal respiratory effort, lungs clear to auscultation Cardiovascular: RRR, no murmur, no edema Gastrointestinal (Abdomen): normal bowel sounds, soft, nontender, no hepatosplenomegaly Incisions x4, clean dry intact and healing well. Although I did note a fullness and tenderness to palpation over the right incision site, no erythema Results & Data ([facility]) Vital Signs (Past 12 Hours) Vital Signs Temp Pulse Pulse Resp BP BP Pulse Ox 07/28/21 19:03 85 18 107/68 99 07/28/21 17:29 91 H 24 106/61 100 07/28/21 16:40 89 20 106/61 99 07/28/21 15:14 97 07/28/21 14:31 36.3 C L 110 H 20 123/80 98 Laboratory Results White blood cell count: 8.38 Hemoglobin/hematocrit 10.4/30.9% Platelets 493 PT/INR and APTT normal D-dimer 2810 Creatinine 0.54 test negative Procalcitonin less than 0.05 Urine: Ketones negative, negative for blood negative for nitrites bacteria negative Leuk esterase 1+ Diagnostic Findings CT: [place], [place] [phone] CT Scan Report Patient:SORIN MARTINEZ Admit Date:07/28/21 MR#:[id number] Address1:[address] Acct ID:[id number] Address2: Date:1995 [facility] Zip:[place] [address] Age:25 Location:ED Sex:F Room/Bed: Att Phy: Diagnosis:BLOOD IN URINE Erika Phy:Marcel Kaur DO Service Date:07/28/21 Fam Phy: Interpreting Phy:Tristian De La TorreAdmit Phy: Ordering Phy:Kael Arce M.D. cc: ~ ADDENDUM Under the technique section, CT abdomen and pelvis with IV contrast only was also obtained. Electronically signed by: Tristian De La Torre M.D. 07/28/2021 5:[address] angio chest PE protocol, CT abd pelvis IV con only CT DOSE: 750.96 mGy.cm HISTORY: 25 years-old Female with PE. Acute cough with shortness of breath and abdominal pain. Recent laparoscopic ovarian cyst removal. Acute hematuria. TECHNIQUE: Multiple CTA images of the chest were obtained after the intravenous administration of 119 ml Optiray. Coronal and sagittal MIPS were obtained from the axial data set and were submitted for review. All measurements were obtained according to NASCET criteria. A dose lowering technique was utilized adhering to the principles of ALARA. COMPARISON: Chest radiograph of same day FINDINGS: CTA: There is adequate opacification of the pulmonary arteries to the level of the subsegmental branches without convincing evidence of acute pulmonary embolism. Normal thoracic aorta.Heart size is normal. CT CHEST: No thyroid nodule. Residual thymic tissue anterior mediastinum. No lymphadenopathy. Appearance of the breast tissue. Trace pleural effusions. No pneumothorax or overt pulmonary edema. Subsegmental left greater than right bibasilar atelectasis. The central airways are patent. No acute fracture. CT ABDOMEN/PELVIS: Small volume of pneumoperitoneum, predominately within the upper abdomen. The spleen measures within the upper limits of normal in size. Unremarkable pancreas, gallbladder and adrenal glands. Hepatic steatosis with mild hepatomegaly. There is patency of the hepatic and portal veins. Unremarkable kidneys. No hydronephrosis. Mild urinary bladder wall thickening. Focus of air is noted within the urinary bladder lumen. Air is also noted within the vaginal introitus. 2.4 cm cystic structure of the right ovary. Moderate pelvic hemoperitoneum with hemorrhagic material measuring up to 7 mm superior to the urinary bladder and anterior to the uterus. Hemorrhage tracks into the bilateral adnexal distributions and inferior pericolic gutters. The appendix is fluid-filled however appears noninflamed. Scattered colonic air- fluid levels. No bowel obstruction. Subcutaneous emphysema with trace fluid noted within the periumbilical tissues, likely postoperative. No acute fracture. IMPRESSION: 1. No pulmonary embolus. 2. Small amount of pneumoperitoneum is likely an expected postoperative finding. Additionally, there is a moderate amount of pelvic hemoperitoneum. 3. 2.4 cm right ovarian cyst. 4. Mild urinary bladder wall thickening. Air within the bladder lumen may be secondary to recent instrumentation versus infection. 5. The appendix is fluid-filled however appears noninflamed. 6. Hepatomegaly with hepatic steatosis. TVUS: Report currently pending, however I reviewed it and noted normal uterus, normal right ovary, left ovary postop changes, noted old hemoperitoneum anterior to the uterus
--- NOTE | 2021-07-28 20:37 | Ultrasound Report ---
US pelvic complete HISTORY: 25 years-old Female pain acute pelvic pain with hemoperitoneum and recent laparoscopic cyst removal COMPARISON: CT pelvis of same day TECHNIQUE: Multiple real-time sonographic images of the deep pelvic structures were obtained transabd ominally and transvaginally assessing grayscale appearance, color and spectral flow FINDINGS: TRANSABDOMINAL: Anteflexed uterus measures 6.9 x 2.7 x 4.6 cm. Endometrium measures 7 mm. No myometrial mass lesion i dentified. Moderate amount of complex free pelvic fluid redemonstrated measuring up to 8.4 x 4.3 x 7. 3 cm superior to the uterus. Ovaries are not well visualized. TRANSVAGINAL: Unremarkable sonographic appearance of the uterus and endometrium. Pneumoperitoneum redemonstrated. T he right ovary measures 3.9 x 3.1 x 3.9 cm and demonstrates arterial inflow with venous outflow. Hemo rrhagic right ovarian cyst, 2.7 x 3.1 x 1.9 cm. The left ovary is obscured by the pelvic blood produc ts. IMPRESSION: 1. Moderate amount of hemoperitoneum within the pelvis redemonstrated obscuring the left ovary. 2. Unremarkable sonographic appearance of the uterus and endometrium. 3. 3.1 cm hemorrhagic right ovarian cyst. 4. No evidence of right ovarian torsion. ACT 112: Negative or not required by law. The above report was generated using voice recognition software. It may contain grammatical, syntax o r spelling errors. Electronically signed by: Tristian De La Torre M.D. 07/28/2021 8:34 PM
[2021-07-28] MEDS: cephALEXin 500 MG CAP PO SCH (22:32)
[2021-07-29] MEDS ORDERED: SODIUM CHLORIDE 0.9% 1000ML 1,000 ML IV SCH (06:00)
[2021-07-29 06:01] LABS: Basophils # (auto) 0.03 K/uL (0-0.2); Basophils % (auto) 0.4 %; Eosinophils # (auto) 0.47 K/uL (0-0.5); Hematocrit (blood only) 29.2 % (37-47); Hemoglobin 9.6 g/dL (12.0-16.0); Immature Granulocytes # (auto) 0.03 K/uL (0.00-0.02); Immature Granulocytes % (auto) 0.4 %; Lymphocytes % (auto) 30.5 %; Mean Corpuscular Hemoglobin 29.3 pg (25-34); Mean Corpuscular Hgb Conc 32.9 g/dL (32-36); Mean Platelet Volume 8.1 fL (7.4-10.4); Monocytes # (auto) 0.69 K/uL (0.11-0.59); Monocytes % (auto) 8.8 %; Neutrophils # (auto) 4.24 K/uL (1.4-6.5); Neutrophils % (auto) 53.9 %; Platelet Count 457 K/uL (130-400); RDW Coefficient of Variation 13.1 % (11.5-14.5); Red Blood Count 3.28 M/uL (4.2-5.4); White Blood Count 7.86 K/uL (4.8-10.8)
[2021-07-29] MEDS ORDERED: MoRPHine SULFATE 2 MG/ML CARP IM PRN (06:41)
[2021-07-29 06:43] LABS: Anion Gap 8 (3-11); BUN Creatinine Ratio 26.7 (10-20); Blood Urea Nitrogen 12 mg/dl (6-23); Calcium 8.9 mg/dl (8.5-10.1); Carbon Dioxide 25 mmol/L (21-32); Chloride 105 mmol/L (98-107); Creatinine Clr Calc Pharmacy 183.3 ml/min; Est GFR (African American) > 150.0 ml/min; Est GFR (Non-African American) 139.3 ml/min; Glucose 90 mg/dl (70-99(Fasting)); Potassium 3.9 mmol/L (3.5-5.1); Sodium 138 mmol/L (136-145)
[2021-07-29 06:44] LABS: D Dimer 3080 ug/L FEU (0-500)
--- NOTE | 2021-07-29 06:47 | Progress Note ---
Date of Service July 29, 2021 Assessment & Plan (1) Post-operative pain: Plan: Pain has been well controlled (2) Postoperative fever: Plan: cephalexin 500 mg 4 times daily for possible UTI, due to increased risk due to Aquino placement at the time of surgery (3) Elevated d-dimer: Plan: Most likely elevated due to postoperative state, and clot formation from surgery. Was negative for PE on CTA earlier today. Repeat this morning pending (4) Hemoperitoneum: Plan: Noted on CT and again noted is a moderate hemoperitoneum on transvaginal ultrasound results. Unsure when the time of this bleed occurred, as it appears to be old and with clots. No signs of active bleeding. No peritonitis. Although there was a drop in her hemoglobin from yesterday till today, she also had brief received a bolus of fluid and fluids overnight through her IV. Could be dilutional. We will keep n.p.o. and repeat CBC at 11:00. If continues to show drop in hemoglobin will hiv counselor patient for diagnostic laparoscopy (5) Anemia due to blood loss, acute: Plan: Plan to start patient on iron and Colace on discharge/postop Admission and Anticipated Discharge Date Admission Date: July 28, 2021 Subjective Patient lying comfortably in bed, only needed 1 dose of ibuprofen for pain last night. Currently denies any pain. Otherwise feeling well. Denies any fevers or chills. Has been ambulating normally. Had dinner last night, and water since. Review of Systems Review of Systems: All systems reviewed & are unremarkable except as noted in HPI & below Physical Exam Constitutional: WD/WN, vitals as above Respiratory: normal respiratory effort, lungs clear to auscultation Cardiovascular: RRR, no murmur, no edema Gastrointestinal (Abdomen): normal bowel sounds, soft, nontender, no hepatosplenomegaly Incisions clean dry intact and healing well Results & Data ([facility]) Vital Signs (Past 12 Hours) Vital Signs Temp Pulse Pulse Pulse Resp BP BP 07/29/21 04:12 36.8 C 83 16 07/28/21 22:49 36.9 C 75 16 113/74 07/28/21 21:56 36.7 C 74 18 117/67 07/28/21 21:55 36.7 C 74 18 117/67 07/28/21 21:00 82 24 110/67 07/28/21 20:30 86 20 120/50 L 07/28/21 20:07 83 16 114/68 07/28/21 19:03 85 18 107/68 BP Pulse Ox 07/29/21 04:12 112/75 98 07/28/21 22:49 98 07/28/21 21:56 98 07/28/21 21:55 98 07/28/21 21:00 98 07/28/21 20:30 98 07/28/21 20:07 98 07/28/21 19:03 99 Laboratory Results Repeat hemoglobin/hematocrit this morning 9.6/29.2% platelets 457, BMP pending D-dimer pending
--- NOTE | 2021-07-29 08:48 | Electrocardiogram Report ---
Test Reason : Blood Pressure : / mmHG Vent. Rate : 094 BPM Atrial Rate : 094 BPM P-R Int : 126 ms QRS Dur : 080 ms QT Int : 350 ms P-R-T Axes : 063 083 062 degrees QTc Int : 437 ms Normal sinus rhythm Normal ECG No previous ECGs available Confirmed by Wayne Posada ([id number]) on 07/29/2021 8:48:45 AM Referred By: REFERRED SELF Confirmed By:Wayne Posada
[2021-07-29] MEDS: cephALEXin 500 MG CAP PO SCH ×2 (09:02→14:15)
--- NOTE | 2021-07-29 10:24 | Progress Note ---
Date of Service July 29, 2021 Assessment & Plan (1) Post-operative pain: Plan: Pain has been well controlled (2) Postoperative fever: Plan: cephalexin 500 mg 4 times daily for possible UTI, due to increased risk due to Aquino placement at the time of surgery (3) Elevated d-dimer: Plan: Most likely elevated due to postoperative state, and clot formation from surgery. Was negative for PE on CTA earlier today. Repeat this morning 3080 (4) Hemoperitoneum: Plan: Noted on CT and again noted is a moderate hemoperitoneum on transvaginal ultrasound results. Unsure when the time of this bleed occurred, as it appears to be old and with clots. No signs of active bleeding. No peritonitis. Although there was a drop in her hemoglobin from yesterday till today, she also had brief received a bolus of fluid and fluids overnight through her IV. Could be dilutional. We will keep n.p.o. and repeat CBC at 11:00. If continues to show drop in hemoglobin will sexual assault counsellor patient for diagnostic laparoscopy (5) Anemia due to blood loss, acute: Plan: Plan to start patient on iron and Colace on discharge/postop Plan: Patient was counseled for diagnostic laparoscopy, possible left oophorectomy, possible removal of diseased tissue. She is counseled about the benefits risks and alternatives including the risk of infection, bleeding that might require blood transfusion, risk of conversion to open, injury to bowel/bladder/nerves/vessels/uterus/ureters that may require additional surgery, DVT/PE, CA, stroke, hernia formation and pain. Patient voiced her understanding and consents were signed by the patient and myself in the room. All questions answered OR staff updated Plan to discharge patient home after procedure if she is stable and pain is well controlled. Follow-up as scheduled Admission and Anticipated Discharge Date Admission Date: July 28, 2021 Subjective Patient comfortable at this time, however due to the moderate hemoperitoneum seen on ultrasound, and the drop in hemoglobin this morning, discussed with patient about conservative versus surgical management. She is agreeable to undergo diagnostic laparoscopy. CBC and type and screen currently pending Physical Exam Constitutional: WD/WN, vitals as above Respiratory: normal respiratory effort, lungs clear to auscultation Cardiovascular: RRR, no murmur, no edema Gastrointestinal (Abdomen): normal bowel sounds, soft, nontender, no hepatosplenomegaly Results & Data ([facility]) Vital Signs (Past 12 Hours) Vital Signs Temp Pulse Pulse Resp BP BP Pulse Ox 07/29/21 07:45 36.6 C 78 20 103/70 100 07/29/21 04:12 36.8 C 83 16 112/75 98 07/28/21 22:49 36.9 C 75 16 113/74 98
[2021-07-29 10:26] LABS: Hematocrit (blood only) 30.4 % (37-47); Hemoglobin 10.1 g/dL (12.0-16.0); Mean Corpuscular Hemoglobin 29.4 pg (25-34); Mean Corpuscular Volume 88.4 fL (80-100); Mean Platelet Volume 7.9 fL (7.4-10.4); Platelet Count 434 K/uL (130-400); RDW Standard Deviation 41.5 fL (36.4-46.3); Red Blood Count 3.44 M/uL (4.2-5.4); White Blood Count 7.09 K/uL (4.8-10.8)
[2021-07-29] MEDS ORDERED: ONDANSETRON INJ 2 MG/ML 2 ML VIAL IV PRN ×2 (10:27→13:16)
[2021-07-29] MEDS ORDERED: fentaNYL citrate 100 MCG/2 ML VIAL IV PRN (10:27)
[2021-07-29] MEDS ORDERED: ATROPINE SULFATE 0.1 MG/ML 10ML SYR IV PRN (10:27)
[2021-07-29] MEDS ORDERED: ePHEDrine sulfate 50 MG/ML AMP IV PRN (10:27)
--- NOTE | 2021-07-29 10:27 | Anesthesiology Consultation ---
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 History Height/Weight Height: 5 ft 2 in Weight: 76.7 kg Allergies Allergy/AdvReac Type Severity Reaction Status Date / Time doxycycline Allergy Intermediate hives Verified 07/28/21 15:21 nickel Allergy Intermediate ITCHY HIVES Verified 07/28/21 15:21 Medications Home Medications Medication Instructions Recorded Confirmed Last Taken albuterol sulfate 90 mcg/actuation 1 inh INHALATION QID PRN 07/18/21 07/28/21 Un known aerosol inhaler (Ventolin HFA) ibuprofen 200 mg capsule 600 mg PO Q6H PRN 07/18/21 07/28/21 Unknown tramadol 50 mg tablet 50 mg PO Q6H PRN #12 tab 07/20/21 07/28/21 Unknown cephalexin 500 mg tablet 500 mg PO BID 10 Days #20 tab 07/28/21 Unknown Active Medications Generic Name Dose Route Start Last Admin Trade Name Freq PRN Reason Stop Dose Admin Cephalexin HCl 500 mg 07/28/21 21:00 07/29/21 09:02 Cephalexin 500 Mg Cap PO 08/02/21 20:59 Not Given QID LESLY Ibuprofen 600 mg 07/28/21 19:59 07/28/21 22:19 Ibuprofen 600 Mg Tab PO 08/27/21 19:58 600 mg Q6H PRN Administration Pain Past Medical History Medical History Anxiety Asthma LAST INHALER USE 2-3 WEEKS AGO GERD (gastroesophageal reflux disease) Migraine HX Past Family History Family History Grandmother (Maternal) No problems noted. Grandmother (Paternal) Family hx of colon cancer Past Surgical History Surgical History History of laparotomy FOR OVARIAN CYSTS History of tooth extraction WISDOM TEETH Nausea and vomiting after administration of anesthetic agent Social History Smoking Status: Current every day smoker tobacco type: cigarettes Do You Dip or Chew Tobacco: No Hx Alcohol Use: No Hx Substance Use: No substance use type: does not use Physical Exam Vital Signs Last Vital Signs Temp 97.9 F 07/29/21 07:45 Pulse 78 07/29/21 07:45 Resp 20 07/29/21 07:45 BP 103/70 07/29/21 07:45 Pulse Ox 100 07/29/21 07:45 Testing Laboratory Results 07/29/21 05:09 PT 10.5 Seconds (9.0-12.0) 07/28/21 15:10 INR 1.0 (0.9-1.1) 07/28/21 15:10 APTT 29.2 Seconds (21.0-31.0) 07/28/21 15:10 Urine Color Dark Yellow 07/28/21 15:05 Urine Appearance Clear (Clear) 07/28/21 15:05 Urine pH 6.5 (4.5-7.5) 07/28/21 15:05 Ur Specific Prather 1.021 (1.000-1.030) 07/28/21 15:05 Urine Protein Negative (Negative) 07/28/21 15:05 Urine Glucose (UA) Negative (Negative) 07/28/21 15:05 Urine Ketones Negative (Negative) 07/28/21 15:05 Urine Nitrite Negative (Negative) 07/28/21 15:05 Ur Leukocyte Esterase 1+ (Negative) H 07/28/21 15:05 Urine WBC (Auto) 1-5 /hpf (0-5) 07/28/21 15:05 Urine RBC (Auto) 0-4 /hpf (0-4) 07/28/21 15:05 U Hyaline Cast (Auto) 1-5 /lpf (0-5) 07/28/21 15:05 U Epithel Cells (Auto) >30 /lpf (0-5) H 07/28/21 15:05 Urine Bacteria (Auto) Negative (Negative) 07/28/21 15:05 Laboratory Tests 07/29/21 10:14 WBC 7.09 Hgb 10.1 L Plt Count 434 H Electrocardiogram Date: 07/28/21 Findings: + NSR @ (94 bpm)
[2021-07-29] MEDS ORDERED: LACTATED RINGER'S 1,000 ML IV SCH (10:30)
[2021-07-29 10:40] LABS: Mean Corpuscular Hgb Conc 33.2 g/dL (32-36)
[2021-07-29] MEDS ORDERED: MIDAZOLAM HCL 1 MG/ML 2ML VIAL ONE (11:03)
[2021-07-29] MEDS ORDERED: PROPOFOL IV EMULSION 10 MG/ML 20 ML VIAL IV ONE (11:03)
[2021-07-29] MEDS ORDERED: LIDOCAINE 2% 2 ML VIAL/AMP(20MG/ML) INFIL ONE (11:03)
[2021-07-29] MEDS ORDERED: fentaNYL citrate 100 MCG/2 ML VIAL ONE ×3 (11:03→13:39)
[2021-07-29] MEDS ORDERED: ONDANSETRON INJ 2 MG/ML 2 ML VIAL ONE (11:18)
[2021-07-29] MEDS ORDERED: DEXAMETHASONE SOD INJ 4 MG/ML VIAL ONE (11:18)
[2021-07-29] MEDS ORDERED: ACETAMINOPHEN 1000 MG/100 ML IV IV ONE (11:24)
[2021-07-29] MEDS ORDERED: BUPIVACAINE 0.5 % 5 MG/1 ML MPF 30ML VIAL ONE (11:29)
[2021-07-29] MEDS ORDERED: Nursing to Pharmacy Communication SCH (12:00)
[2021-07-29] MEDS ORDERED: FLOSEAL HEMOSTATIC MATRIX 10ML TOP ONE (12:19)
[2021-07-29] MEDS ORDERED: TISSEEL FIBRIN SEALANT 10ML TOP ONE (12:20)
[2021-07-29] MEDS ORDERED: GLYCOPYRROLATE 0.2 MG/ML VIAL ONE (12:33)
[2021-07-29] MEDS ORDERED: NEOSTIGMINE METHYLSULFATE 1 MG/ML 10ML VIAL ONE (12:33)
[2021-07-29] MEDS ORDERED: KETOROLAC 30 MG/ML VIAL ONE (12:47)
[2021-07-29] MEDS ORDERED: IBUPROFEN 600 MG TAB PO PRN (13:16)
[2021-07-29] MEDS ORDERED: METOCLOPRAMIDE HCL INJ 5 MG/ML 2 ML VIAL IV PRN (13:16)
--- NOTE | 2021-07-29 13:28 | Operative Report ---
Post Operative Report Pre & Post Diagnosis Operation Date: 07/29/21 11:00 Pre-Op Diagnosis: Post operative pain, post operative fever, elevated D-Dimer, acute anemia due to blood loss, Hemoperitoneum Post-Op Diagnosis: Post operative pain, post operative fever, elevated D-Dimer, acute anemia due to blood loss, Hemoperitoneum I identified the patient and participated in the time-out.: Yes Procedure Operation Date: 07/29/21 11:00 Actual Procedures p Diagnostic laparoscopy, left salpingo-oophorectomy, evacuation of hemoperitoneum- Tari Harvey MD, PhD Surgeon Tari Harvey MD, PhD Director Of [facility] Lore Underwood PA-C Estimated Blood Loss 300 Findings Consistent with Post-Op Diagnosis External genitalia: Normal Vagina: Normal Bimanual exam: Anteverted uterus, measuring approximately 8 weeks, no vaginal bleeding noted Cervix: Normal Uterus measured 8 cm Diffuse amounts of hemoperitoneum including fresh and clotted blood, approximately 300 mL noted in the pelvis. Normal-appearing uterus, normal- appearing right fallopian tube, right ovary noted approximately 2.5 cm ovarian cyst. Dilated left fallopian tube, left ovary with large amount of clot and noted bleeding from the ovarian edges. Posterior cul-de-sac peritoneum was hemostatic, right pelvic sidewall peritoneum was hemostatic. Specimens Left ovary and left fallopian tube Drains None Anesthesia Type General Complications None Disposition Accompanied Patient To Recovery: Yes Disposition: Recovery Room Indications Postop day 9 from left cystectomy, removal of peritoneal lesions who presented with postop fever and postop pain and was noted to have a moderate hemoperitoneum with a drop in hemoglobin suggestive of acute blood loss Description of Procedure Attestation: My Director Of [facility] was necessary throughout the procedure(s) for tissue retraction, camera operation and insertion of uterine manipulator I understand that section 1842 (b)(7)(D) of the Social Security Act generally prohibits Medicare physician fee schedule payment for the services of [id number] in teaching hospitals when qualified residents are available to furnish such services. I certify that the services for which payment is claimed were medically necessary, and that no qualified resident was available to perform the services. I further understand that these services are subject to post-payment review by the Medicare carrier. Procedure The patient was taken to the operating room where general anesthesia was found to be adequate. She was placed in yellowfin stirrups. She was prepped and draped in a sterile fashion. The bladder was drained with a Aquino catheter and a uterine manipulator was placed in a sterile fashion. Attention was turned of the abdomen in a sterile fashion. After infusion of local anesthesia , a 5 mm infraumbilical incision was made with a scalpel. A 5 mm trocar was placed under laparoscopic visualization. The underlying bowel and vasculature were inspected and found to be free from injury. Gas was turned on, and pneumoperitoneum was achieved. Next a 11 mm right lower quadrant port and a left 5 mm port were placed under laparoscopic visualization. Trendelenburg positioning was obtained. There was noted to be approximately 300 mL of fresh and clotted blood within the pelvis and abdomen. Suction and irrigation was used to remove the blood and clot, and noted large amount of clot coming from the left ovarian site of the previous cystectomy. There appeared to be fresh bleeding from the edges of the ovarian tissue and the decision was made to proceed with left salpingo- oophorectomy. The left IP ligament was identified, coagulated and cut along the IP safely away from any bowel. This was followed up the mesosalpinx to the cornual region where her the fallopian tube was coagulated and cut including the utero ovarian vasculature. Good hemostasis was noted from the left utero-ovarian vasculature and left IP. The left ovary and left fallopian tube were removed with 11 mm bag through the right port site. The specimen was handed off for pathology. Further suction and irrigation was used to remove the remaining hemoperitoneum from the pelvis. Tisseel was then applied over the previous 2 peritoneal sites where peritoneal lesions had been removed at her surgery 9 days ago. These were on the posterior cul-de-sac and the right pelvic sidewall. Good hemostasis was noted. Additionally Tisseel was also placed over the left IP and utero-ovarian vasculature. Good hemostasis was noted. Floseal was then applied over the left IP and right pelvic sidewall. Good hemostasis was noted. There was no signs of any ongoing bleeding. Patient was then taken out of Trendelenburg and remaining blood was evacuated from the pelvis. Patient was then placed back into Trendelenburg and a Mayur Lamb was used to close the fascia of the 11 port on the patient's right side. Evaluation of the upper abdomen revealed no further pathology. Pneumoperitoneum was released and the trocars were removed. The subcutaneous tissue of all 3 port sites were closed with 2-0 Vicryl. The skin was then closed with 4-0 Vicryl in a subcuticular fashion. Dermabond was placed over the incisions, and a pressure dressing was placed upon the patient's left and right port site. The Aquino catheter was removed. The uterine manipulator was removed and hemostasis ensured. The patient was cleaned and dried and legs brought down from lithotomy position simultaneously. The patient was extubated and transferred to recovery in stable condition. Sponge, lap and needle counts were reported correct by the nursing staff following the procedure. Anibal Harvey MD PhD I attest to the content of the Intraoperative Record and any orders documented therein. Any exceptions are noted below.
--- NOTE | 2021-07-29 13:31 | Discharge Summary ---
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 Patient underwent surgery last Friday in which a large left ovarian cyst was removed from her left ovary, noted small amount of bleeding from her left ovary at time of surgery and Tisseel was applied. Hemostasis was then noted. Both sites of peritoneal lesions that were removed, were both noted to be hemostatic at the time of surgery. Preop hemoglobin/hematocrit 07/04/2021 09:37 HGB: 13.9 HCT: 40.3 Patient had noticed approximately on Friday and her pain to become more increasing, and she needed to take her tramadol, as well as she noted around midnight to have spiking fevers, with the highest temp of 101.5. She did have a fever of 100 yesterday evening, has come down since. When she got to the ER she did not have a fever. She has been ambulating well, denies any bowel changes. Notes possible urinary symptoms and thinks she had blood come from her urine or her vagina earlier this morning. She also noticed tenderness over her right incision site, more painful than her other incision sites. Noticed bruising at her umbilicus. She denies shortness of breath, chest pain or dizziness. Otherwise doing well. Pain is currently 7 out of 10, but has been well controlled with p.o. medication at this time. Admission Exam (Per Admitting) Constitutional WD/WN, vitals as above Respiratory normal respiratory effort, lungs clear to auscultation Cardiovascular RRR, no murmur, no edema Gastrointestinal (Abdomen) normal bowel sounds, soft, nontender, no hepatosplenomegaly Discharge Data Consultations 07/28/21 20:16 ED Decision to Admit Stat Procedures Performed Operation Date: 07/29/21 11:00 Actual Procedures p Diagnostic laparoscopy, left salpingo-oophorectomy - Tari Harvey MD, PhD Hospital Course (1) Post-operative pain: Pain has been well controlled (2) Postoperative fever: cephalexin 500 mg 4 times daily for possible UTI, due to increased risk due to Aquino placement at the time of surgery (3) Elevated d-dimer: Most likely elevated due to postoperative state, and clot formation from surgery. Was negative for PE on CTA earlier today. Repeat this morning 3080 (4) Hemoperitoneum: Noted on CT and again noted is a moderate hemoperitoneum on transvaginal ultrasound results. Unsure when the time of this bleed occurred, as it appears to be old and with clots. No signs of active bleeding. No peritonitis. Although there was a drop in her hemoglobin from yesterday till today, she also had brief received a bolus of fluid and fluids overnight through her IV. Could be dilutional. We will keep n.p.o. and repeat CBC at 11:00. 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 She is counseled about the benefits risks and alternatives including the risk of infection, bleeding that might require blood transfusion, risk of conversion to open, injury to bowel/bladder/nerves/vessels/uterus/ureters that may require additional surgery, DVT/PE, OK, stroke, hernia formation and pain. Patient voiced her understanding and consents were signed by the patient and myself in the room. All questions answered OR staff updated Plan to discharge patient home after procedure if she is stable and pain is well controlled. Follow-up as scheduled
--- NOTE | 2021-07-29 13:39 | Anesthesiology Progress Note ---
Date of Service July 29, 2021 Anesthesia Post Procedure Vital Signs Vital Signs: Temp Pulse Pulse Pulse Pulse Resp BP 07/29/21 13:35 55 L 20 07/29/21 13:25 57 L 21 07/29/21 13:17 97.5 F L 73 16 07/29/21 07:45 97.9 F 78 20 07/29/21 04:12 98.2 F 83 16 07/28/21 22:49 98.4 F 75 16 07/28/21 21:56 98.1 F 74 18 07/28/21 21:55 98.1 F 74 18 07/28/21 21:00 82 24 110/67 07/28/21 20:30 86 20 120/50 L 07/28/21 20:07 83 16 114/68 07/28/21 19:03 85 18 07/28/21 17:29 91 H 24 07/28/21 16:40 89 20 07/28/21 15:14 07/28/21 14:31 97.3 F L 110 H 20 123/80 BP BP Pulse Ox 07/29/21 13:35 119/80 100 07/29/21 13:25 114/79 100 07/29/21 13:17 121/72 100 07/29/21 07:45 103/70 100 07/29/21 04:12 112/75 98 07/28/21 22:49 113/74 98 07/28/21 21:56 117/67 98 07/28/21 21:55 117/67 98 07/28/21 21:00 98 07/28/21 20:30 98 07/28/21 20:07 98 07/28/21 19:03 107/68 99 07/28/21 17:29 106/61 100 07/28/21 16:40 106/61 99 07/28/21 15:14 97 07/28/21 14:31 98 Pain Intensity Abdomen: Pain Intensity: 4 Transfer of Care Handoff Completed per policy Notes Mental Status: alert / awake / arousable and participated in evaluation Patient Amnestic to Procedure: Yes Nausea / Vomiting: adequately controlled Pain: adequately controlled Airway Patency, RR, SpO2: stable & adequate BP & HR: stable & adequate Hydration State: stable & adequate Anesthetic Complications: no major complications apparent and Pt Satisfied with anesthetic care
== END 2021-07-29 14:38 | disposition home or self-care (01) ==
LOC: ED 14:23 → 4E1 14:23